=== PATIENT | male | born 1985 | race Caucasian/White ===

== ENCOUNTER 2021-04-17 07:28 | Emergency (ER) | payer OTHER ==
[~2021-04-17] VITALS: Ht 188 cm; Wt 102.6 kg
--- NOTE | 2021-04-17 07:42 | NUR ---
PT AMBULATORY TO ROOM FROM TRIAGE, CONNECTED TO ALL MONITORS. NADN. CALL LIGHT WITHIN REACH
--- NOTE | 2021-04-17 07:50 | NUR ---
PA AT BS
[2021-04-17] MEDS ORDERED: IBUPROFEN 600 MG TABLET ONE (07:57)
[2021-04-17] MEDS ORDERED: IBUPROFEN 600 MG TABLET PO ONE (08:00)
[2021-04-17 08:31] VITALS: BP 113/67
--- NOTE | 2021-04-17 08:45 | NUR ---
Patient given discharge instructions and RX, they have confirmed that they understand the instructions. Patient ambulatory with steady gait.
== END 2021-04-17 08:46 | disposition home or self-care (01) ==
LOC: ED 08:35
DX: H60.502 Unspecified acute noninfective otitis externa, left ear (principal); H92.02 Otalgia, left ear; J02.8 Acute pharyngitis due to other specified organisms; B97.89 Other viral agents as the cause of diseases classified elsewhere
CPT/HCPCS: 87081; 87880; 99283